=== PATIENT | female | born 1970 | race African-American/Black ===

== ENCOUNTER 2021-05-20 09:21 | Emergency (ER) | payer SELFPAY ==
[2021-05-20 09:32] VITALS: BP 125/84; PULSE 73; TEMP 98; BMI 28.3
== END 2021-05-20 10:30 ==
LOC: JERFT 09:21
DX: Z11.52 Encounter for screening for COVID-19 (principal)
CPT/HCPCS: C9803; Q3014-GT; U0003; U0005